=== PATIENT | female | born 2000 | race Caucasian/White ===

== ENCOUNTER 2020-03-03 10:53 | Inpatient (IN) | payer MEDICAID ==
[~2020-03-03] VITALS: Ht 162.6 cm; Wt 74.8 kg
[2020-03-03] MEDS ORDERED: FAMOTIDINE 20MG/2ML VIAL IV STA (11:06)
[2020-03-03] MEDS ORDERED: MORPHINE SULFATE 4 MG/ML CPJ (NOT FOR IM USE) IV STA (11:06)
[2020-03-03] MEDS ORDERED: SODIUM CHLORIDE 0.9% 1,000 ML IV ONE (11:06)
[2020-03-03] MEDS ORDERED: ONDANSETRON HCL 4MG/2ML INJ IV STA (11:06)
[2020-03-03] MEDS ORDERED: KETOROLAC 30MG/ML VIAL IV STA (11:06)
[2020-03-03 11:27] LABS: CLARITY URINE CLOUDY (CLEAR); COLOR URINE YELLOW (YELLOW); KETONES URINE TRACE (NEGATIVE); LEUKOCYTE ESTERASE URINE NEGATIVE (NEGATIVE); NITRITE URINE NEGATIVE (NEGATIVE); OCCULT BLOOD URINE NEGATIVE (NEGATIVE); PROTEIN URINE NEGATIVE (NEGATIVE); SPECIFIC GRAVITY URINE 1.023 (1.005-1.030); UROBILINOGEN URINE 0.2 E.U./dL (0.2-1.0)
[2020-03-03 11:38] LABS: BASOPHILS % 0.7 % (0.0-2.0); EOSINOPHILS % 0.5 % (0.0-5.0); HEMOGLOBIN. 13.4 g/dL (12.0-16.0); MEAN CORPUSCULAR HEMOGLOBIN 27.2 pg (28.0-32.0); MEAN CORPUSCULAR VOLUME 81.5 fL (81.0-99.0); MEAN PLATELET VOLUME 9.7 fl (7.4-10.4); MONOCYTES % 4.3 % (2.0-8.0); NEUTROPHILS % 77.5 % (40.0-76.0); PLATELET 232 x1000/uL (130-400); RED BLOOD CELL COUNT 4.91 mill/uL (4.2-5.4)
[2020-03-03 11:41] LABS: *AMPHETAMINES SCREEN URINE NEGATIVE (NEGATIVE); *BARBITURATES SCREEN URINE NEGATIVE (NEGATIVE); *BENZODIAZEPINES SCREEN URINE NEGATIVE (NEGATIVE); *COCAINE SCREEN URINE NEGATIVE (NEGATIVE); METHADONE URINE SCREEN NEGATIVE (NEGATIVE)
[2020-03-03 11:42] LABS: CANNABINOID URINE SCREEN NEGATIVE (NEGATIVE); OPIATES URINE SCREEN NEGATIVE (NEGATIVE); PHENCYCLIDINE URINE SCREEN NEGATIVE (NEGATIVE)
[2020-03-03 11:45] LABS: CHLORIDE 110 mEq/L (98-107)
[2020-03-03 11:50] LABS: HCG SCREEN NEGATIVE
[2020-03-03 11:59] LABS: PROTHROMBIN TIME 10.8 sec (9.6-11.0)
[2020-03-03] MEDS ORDERED: MORPHINE SULFATE 2 MG/ML CPJ (NOT FOR IM USE) IV ONE (12:30)
[2020-03-03] MEDS ORDERED: IOHEXOL-300 100 ML BOTTLE ONE (12:43)
[2020-03-03] MEDS ORDERED: FENTANYL CITRATE/PF 50MCG/ML 2ML VIAL IV ONE (14:15)
[2020-03-03] MEDS: HYDROMORPHONE HCL/PF 2MG/ML CPJ IV PRN (16:18)
[2020-03-03] MEDS ORDERED: ROCURONIUM BROMIDE 10MG/ML VIAL 5ML IV ONE (17:21)
[2020-03-03] MEDS ORDERED: FENTANYL CITRATE/PF 50MCG/ML 2ML VIAL ONE (17:21)
[2020-03-03] MEDS ORDERED: MIDAZOLAM HCL 2 MG/2 ML VIAL ONE (17:21)
[2020-03-03] MEDS ORDERED: PROPOFOL 200MG/20ML VIAL IV ONE (17:21)
[2020-03-03] MEDS ORDERED: METOCLOPRAMIDE HCL 10MG/2ML VIAL ONE (18:22)
[2020-03-03] MEDS ORDERED: ONDANSETRON HCL 4MG/2ML INJ ONE (18:22)
[2020-03-03] MEDS ORDERED: ONDANSETRON HCL 4MG/2ML INJ IV PRN ×2 (19:00)
[2020-03-03] MEDS ORDERED: KETOROLAC 30MG/ML VIAL IV PRN (19:00)
[2020-03-03] MEDS ORDERED: ACETAMINOPHEN 650MG SUPP PR PRN (19:00)
[2020-03-03] MEDS ORDERED: KETOROLAC 60MG/2ML VIAL IM NR (19:00)
[2020-03-03] MEDS ORDERED: HYDROMORPHONE HCL/PF 2MG/ML CPJ IV PRN (19:00)
[2020-03-03] MEDS ORDERED: MEPERIDINE HCL/PF 25MG/ML CPJ IV PRN (19:00)
[2020-03-03 20:25] VITALS: BP 105/55
[2020-03-03] MEDS ORDERED: ESCI10TA MT (21:05)
[2020-03-03] MEDS: FAMOTIDINE 20MG/2ML VIAL IV SCH (22:04)
[2020-03-04] VITALS (7 sets, daily range): BP systolic 90–105; BP diastolic 38–57
[2020-03-04 07:20] LABS: MEAN CORPUSCULAR HEMOGLOBIN 27.9 pg (28.0-32.0); MEAN CORPUSCULAR VOLUME 81.6 fL (81.0-99.0); MEAN PLATELET VOLUME 10.1 fl (7.4-10.4); PLATELET 196 x1000/uL (130-400)
[2020-03-04] MEDS: HYDROMORPHONE HCL/PF 2MG/ML CPJ IV PRN ×4 (07:25→21:28)
[2020-03-04] MEDS: FAMOTIDINE 20MG/2ML VIAL IV SCH ×2 (12:58→21:28)
[2020-03-04 18:45] LABS: PLATELET ESTIMATE NORMAL
[2020-03-05] VITALS (7 sets, daily range): BP systolic 94–101; BP diastolic 50–56
[2020-03-05] MEDS: HYDROMORPHONE HCL/PF 2MG/ML CPJ IV PRN ×3 (08:27→18:11)
[2020-03-05] MEDS: FAMOTIDINE 20MG/2ML VIAL IV SCH (08:27)
[2020-03-05] MEDS ORDERED: CEFTRIAXONE 1 G PREMIX 50 ML IV NR (10:30)
[2020-03-05 12:06] LABS: BASOPHILS % 0.5 % (0.0-2.0); EOSINOPHILS % 0.6 % (0.0-5.0); HEMATOCRIT. 34.1 % (36.0-48.0); HEMOGLOBIN. 11.5 g/dL (12.0-16.0); LYMPHOCYTES % 24.9 % (20.0-50.0); MEAN CORPUSCULAR HEMOGLOBIN 27.6 pg (28.0-32.0); MEAN CORPUSCULAR VOLUME 81.7 fL (81.0-99.0); MEAN PLATELET VOLUME 9.7 fl (7.4-10.4); MONOCYTES % 5.9 % (2.0-8.0); NEUTROPHILS % 68.1 % (40.0-76.0); PLATELET 185 x1000/uL (130-400); RED BLOOD CELL COUNT 4.17 mill/uL (4.2-5.4); RED CELL DISTRIBUTION WIDTH 14.8 % (11.6-14.6)
[2020-03-05 12:44] LABS: CHLORIDE 109 mEq/L (98-107)
[2020-03-05] MEDS ORDERED: ONDANSETRON 4MG ODT PO SCH (13:00)
[2020-03-05] MEDS ORDERED: IBUP-2029 PO (13:00)
== END 2020-03-05 18:57 | disposition home or self-care (01) | DRG 513 ==
LOC: ER 10:53 → 6EST 14:34 → ENRESERV 19:32
PROVIDERS: ADMIT Internal Medicine; ATTEND Internal Medicine
PROC: 0UB00ZZ Excision of Right Ovary, Open Approach (ICD-10-PCS; principal; 2020-03-03)
DX: N83.511 Torsion of right ovary and ovarian pedicle (principal); D27.0 Benign neoplasm of right ovary; F41.9 Anxiety disorder, unspecified; F32.9 Major depressive disorder, single episode, unspecified; F17.200 Nicotine dependence, unspecified, uncomplicated; D72.829 Elevated white blood cell count, unspecified
CPT/HCPCS: 36415; 74177; 80053; 80305; 81003; 84703; 85025; 88304; 96374; 99285; J0696; J1170; J1885; J2175; J2250; J2270; J2405; J2704; J2765; J3010; J3490; J7030; Q0162; Q9967